=== PATIENT | female | born 1965 | race Caucasian/White ===

== ENCOUNTER 2017-01-03 09:05 | Emergency (ER) | payer MEDICAID ==
[2017-01-03 09:17] VITALS: RESP 16
--- NOTE | 2017-01-03 09:26 | CPEKG ---
Heart Rate: 65 RR Interval: 923 P-R Interval: 172 QRSD Interval: 118 QT Interval: 436 QTC Interval: 454 P [place]: 8 QRS [place]: -26 T Wave [place]: 14 EKG Severity - ABNORMAL ECG - EKG Impression: SINUS RHYTHM EKG Impression: INCOMPLETE RIGHT BUNDLE BRANCH BLOCK EKG Impression: CONSIDER ANTERIOR INFARCT Electronically Signed By: Tiffanie Ortez 03-Jan-2017 11:45:51
[2017-01-03] MEDS ORDERED: NS 1,000 ML IV ONE (09:44)
[2017-01-03 09:48] LABS: % IMMATURE GRANULYOCYTES 0.4 % (0.0-1.1); ABSOLUTE IMMATURE GRANULOCYTES 0.02 10^3/uL (0.00-0.10); ADD DIFF? NO; ADD MORPH? NO; ADD SCAN? NO; ATYPICAL LYMPHOCYTE FLAG 20 (0-99); FRAGMENT RBC FLAG 0 (0-99); HEMATOCRIT 44.7 % (38.0-47.0); HEMOGLOBIN 15.5 g/dL (12.6-16.3); LEFT SHIFT FLG 0 (0-99); LIPEMIA HEMOLYSIS FLAG 90 (0-99); MEAN CELL HEMOGLOBIN 31.6 pg (27.9-34.1); MEAN CELL HEMOGLOBIN CONCENTR. 34.7 g/dL (32.4-36.7); MEAN CELL VOLUME 91.2 fL (81.5-99.8); MEAN PLATELET VOLUME 10.5 fL (8.7-11.7); PLATELET CLUMPS FLAG 0 (0-99); PLATELET COUNT 206 10^3/uL (150-400); RED CELL DISTRIBUTION WIDTH 12.8 % (11.5-15.2)
[2017-01-03 10:02] LABS: ALANINE AMINOTRANSFERASE 49 IU/L (9-52); ALBUMIN 4.4 g/dL (3.5-5.0); ALKALINE PHOSPHATASE 70 IU/L (38-126); ANION GAP 14 mEq/L (8-16); ASPARTATE AMINOTRANSFERASE 27 IU/L (14-46); BILIRUBIN,TOTAL 0.8 mg/dL (0.1-1.4); BILIRUBIN-CONJUGATED 0.4 mg/dL (0.0-0.5); BILIRUBIN-UNCONJUGATED 0.4 mg/dL (0.0-1.1); CALCIUM 9.8 mg/dL (8.5-10.4); CARBON DIOXIDE 19 mEq/l (22-31); CHLORIDE 109 mEq/L (97-110); CREATININE 0.7 mg/dL (0.6-1.0); GLOMERULAR FILTRATION RATE > 60; GLUCOSE 120 mg/dL (70-100); POTASSIUM 4.1 mEq/L (3.5-5.2); SODIUM 142 mEq/L (134-144); TOTAL PROTEIN 7.4 g/dL (6.3-8.2)
[2017-01-03 10:13] LABS: TROPONIN I < 0.012 ng/mL (0-0.034)
[2017-01-03 10:31] LABS: COLOR YELLOW; LEUKOCYTE ESTERASE,URINE TRACE (NEGATIVE); NITRITE,URINE NEGATIVE (NEGATIVE)
[2017-01-03 10:34] LABS: MUCUS TRACE /lpf (NONE-1+)
--- NOTE | 2017-01-03 11:57 | EDPHY ---
H & P Stated Complaint: Chest "fizzy" Time Seen by Provider: 01/03/17 09:39 HPI/ROS: Chief complaint: Epigastric pain History of present illness: This is a 51-year-old female who presents to the emergency department for epigastric pain. Patient reports she has had intermittent pain for months. However over the last 2-3 weeks it has worsened. She does state it gets worse after eating. It does on occasion radiate up into the chest. She denies other precipitating factors. She denies alleviating factors. She denies other associated signs or symptoms including no fevers, no nausea, no vomiting, no diarrhea or constipation, no urinary symptoms, no cough, no shortness of breath, no chest pain, no pain or swelling in the legs. She is concerned she has a gallbladder problem. Review of systems: A 10 point review of systems was obtained and other than described above was negative - Personal History LMP (Females 10-55): Unknown Current Tetanus/Diphtheria Vaccine: Yes - Medical/Surgical History Hx Asthma: No Hx Chronic Respiratory Disease: No Hx Diabetes: No Hx Cardiac Disease: No Hx Renal Disease: No Hx Cirrhosis: No Hx Alcoholism: No Hx HIV/AIDS: No Hx Splenectomy or Spleen Trauma: No Other PMH: [place] , , kidney stone 5 yrs ago - Social History Smoking Status: Never smoked - Physical Exam Exam: General Appearance: Alert, nontoxic. Eyes: Pupils equal and round no pallor or injection. ENT, Mouth: Mucous membranes moist. Respiratory: There are no retractions, lungs are clear to auscultation. Cardiovascular: Regular rate and rhythm. Gastrointestinal: Bowel sounds normal. Abdomen is soft, nondistended and nontender to palpation. There are no peritoneal signs. Neurological: Alert and oriented x4. Strength and sensation intact and symmetrical. Skin: Warm and dry, no rashes. Musculoskeletal: Neck is supple non tender. Extremities are symmetrical, full range of motion. Psychiatric: Patient is oriented X 3, there is no agitation. Constitutional: Initial Vital Signs Temperature (C) 36.5 C 01/03/17 09:05 Heart Rate 77 01/03/17 09:05 Respiratory Rate 16 01/03/17 09:05 Blood Pressure 171/127 H 01/03/17 09:05 O2 Sat (%) 94 01/03/17 09:05 O2 Delivery Mode Room Air Allergies/Adverse Reactions: No Known Allergies Allergy (Unverified 05/15/09 15:23) Home Medications: Medication Instructions Recorded Sertraline HCl 01/03/17 Medical Decision Making - Diagnostics Imaging: Discussed imaging studies w/ call center trainer Radiologist, I viewed and interpreted images myself ED Course/Re-evaluation: Patient discussed with my primary supervising physician Dr. Tiffanie Ortez. Patient presents to the emergency department for epigastric pain. It is worse after eating. She is afebrile. She has a benign abdominal exam. She has an unremarkable workup. I am certainly concerned this is a gastrointestinal issue. I will treat with Zantac. She is referred to Gastroenterology for further evaluation and care. Of note she is hypertensive, review of previous medical records reveals she has been persistently hypertensive. She is asked to follow up with her primary care doctor for recheck of her blood pressure. Return precautions are given. Patient voiced understanding and agreement with plan. Differential Diagnosis: Included but not limited to gastritis, gastroenteritis, biliary tract disease, pancreatitis, colitis, pulmonary pathology such as infection or mass, cardiac dysrhythmia or ACS - Data Points Laboratory Results: Laboratory Results 01/03/17 09:30 01/03/17 09:30 Medications Given: Discontinued Medications Sodium Chloride (Ns) 1,000 mls @ 0 mls/hr IV ONCE ONE; Wide Open PRN Reason: Protocol Stop: 01/03/17 09:45 Last Admin: 01/03/17 09:48 Dose: 1,000 mls Departure - Departure Disposition: Home, Routine, Self-Care Clinical Impression: Epigastric pain Condition: Good Instructions: Epigastric Pain (ED) Additional Instructions: Follow-up with Gastroenterology for continued evaluation and care Use [id number] Zantac as directed for the next 2 weeks If symptoms worsen or new symptoms develop return to the emergency room for recheck Referrals: Génesis Person PA [Primary Care Provider] - As per Instructions Vincent Palmer MD [Medical Doctor] - As per Instructions
[2017-01-03 12:14] VITALS: BP 161/115; PULSE 60; TEMP 97.9; O2SAT 96
== END 2017-01-03 12:13 | disposition home or self-care (01) ==
DX: R10.13 Epigastric pain (principal)